=== PATIENT | female | born 1945 | race Caucasian/White ===

== ENCOUNTER → 2017-10-22 | Outpatient (CLI) | payer MEDICARE, OTHER ==
[~2017-10-22] MED LIST: AUGMENTIN 875875 M1 PO; LISINOPRIL20 MG
== END ==
LOC: M.RAD 12:58
DX: Z12.31 Encounter for screening mammogram for malignant neoplasm of breast (principal)

== ENCOUNTER → 2018-01-11 | Outpatient (CLI) | payer MEDICARE, OTHER | LOC: M.MRI 07:49 | DX: S89.92XA Unspecified injury of left lower leg, initial encounter (principal); M17.12 Unilateral primary osteoarthritis, left knee; M25.462 Effusion, left knee; X58.XXXA Exposure to other specified factors, initial encounter; Y93.89 Activity, other specified; Y92.89 Other specified places as the place of occurrence of the external cause; Y99.8 Other external cause status ==

== ENCOUNTER → 2018-04-18 | Outpatient (CLI) | payer MEDICARE, OTHER | LOC: M.RAD 16:00 | DX: Z00.01 Encounter for general adult medical examination with abnormal findings (principal); M85.80 Other specified disorders of bone density and structure, unspecified site; E28.39 Other primary ovarian failure; Z72.89 Other problems related to lifestyle; Z78.0 Asymptomatic menopausal state ==

== ENCOUNTER → 2018-11-18 | Outpatient (CLI) | payer MEDICARE, OTHER | LOC: M.RAD 14:00 | DX: Z12.31 Encounter for screening mammogram for malignant neoplasm of breast (principal) ==

== ENCOUNTER → 2019-07-31 | Day surgery (SDC) | payer MEDICARE, OTHER ==
[~2019-07-31] MED LIST changes: +B COMPLEX1 EACH PO; +CAL-MAG-ZINC T1 EACH PO; +FISH OIL 1,001000 M3 PO; +L-LYSINE500 M1 PO; -LISINOPRIL20 MG; +LISINOPRIL20 MG PO; +MILK THISTLE175 M3 PO; +OXYCODONE HCL 55 MG PO; +RED YEAST RICE600 MG PO; +VITAMIN C1000 MG PO; +VITAMIN D22000 UNIT PO
[2019-07-31 06:42] LABS: HEMATOCRIT 39.1 % (37.0-47.0); HEMOGLOBIN 13.2 gm/dL (12.0-15.0); MCH 30.5 pg (26.0-34.0); MCHC 33.8 g/dL (28.0-37.0); MCV 90.5 fL (80.0-100.0); MPV 6.7 fl. (7.2-11.1); RBC 4.32 mil/uL (4.20-5.00); RDW-CV 13.1 % (10.5-14.5); WBC 6.2 thou/uL (4.0-11.0)
[2019-07-31 06:49] LABS: CALCIUM 9.1 mg/dL (8.5-10.1); CREATININE 0.9 mg/dL (0.6-1.3); POTASSIUM 3.5 mmol/L (3.5-5.1)
--- NOTE | 2019-07-31 17:11 | EKG ---
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
--- NOTE | 2019-08-03 14:07 | PATH ---
[address] [address] PATHOLOGY RPT PROCEDURE Name: SUDHA NUÑEZ Room: [facility].#: [id number] Admission: 07/31/19 Date of : 47 Discharge: Report #: [id number] Path Case #: [id number] [facility] Accession Number: [id number] . 01 Material submitted: . hernia - LEFT INGUINAL HERNIA SAC. Modifiers: left . 01 Clinical history: . Right inguinal hernia Bilateral inguinal hernia repair and left femoral hernia repair . 02 Diagnosis: Left inguinal hernia sac: - Benign mesothelial-lined fibromembranous/fibrofatty tissue with mild chronic inflammation. (DANA:malvin; 08/02/2019) MBR 08/02/2019 1604 Local . 02 Electronically signed: . Rashaad Daley MD, Pathologist NPI- [id number] . 01 Gross description: . The specimen is received in formalin, labeled "Hiram Omer, Sudha, hernia sac left" and "inguinal" per requisition. Received is a segment of fibromembranous yellow to pink-trent tissue measuring 5.5 x 4.0 x 1.1 cm. Sectioning reveals no mass lesions and international sales representative tissue is submitted in A1. (SDY; 08/01/2019) SYU/SYU 08/01/2019 1034 Local . 02 Pathologist provided ICD-10: K40.90 . 02 CPT . 847773 Specimen Comment: A courtesy copy of this report has been sent to [phone], [phone]- Specimen Comment: [phone], Specimen Comment: Report sent to ,DR HARTMAN / DR CARDONA Performed at: [address], [place], [place] [id number] MD Matt Parks MD Phone: [phone] Performed at: [address] [facility] [address] [place], [place] [id number] MD Rashaad Daley MD Phone: [phone]
--- NOTE | 2019-08-28 11:03 | OP ---
[address] [address] OPERATIVE REPORT Name: VANNA NUÑEZ Room: [facility]#: [id number] Admission: 07/31/19 Attend Phys: Song Weiner DO Discharge: Date of : 47 Report #: [id number] THIS REPORT FOR: //name// CC: Song Hermosillo DICTATED BY: Contreras Kenney DO DATE OF SERVICE: 07/31/2019 PREOPERATIVE DIAGNOSIS: Right inguinal hernia. POSTOPERATIVE DIAGNOSES: Right indirect inguinal hernia, left indirect inguinal hernia, left femoral hernia. PRIMARY SURGEON: Song Weiner DO CONSTRUCTION ELECTRICIAN: Contreras Kenney DO, PGY3 OPERATION PERFORMED: Robotic-assisted laparoscopic bilateral inguinal and left femoral hernia repair with mesh. ANESTHESIA: Combined general and regional bilateral TAP blocks. ESTIMATED BLOOD LOSS: 20 mL. SPECIMEN REMOVED: Hernia sac and contents. COMPLICATIONS: None. INDICATIONS FOR PROCEDURE: The patient is a pleasant 73-year-old female who presented to the office for evaluation of a right inguinal hernia. She was seen at the [place] hernia screening event and was diagnosed with a right inguinal hernia at that time. She reports periodic burning pain as well as right groin pain for nearly 5 years. She reports a palpable and obvious bulge to the right groin that she is able to easily reduce. The hernia has never been stuck out, and denies any overlying skin changes. She also denied any fever, chills, nausea, vomiting, bloating, changes in bowel habits. I recommended a robotic-assisted laparoscopic right possible left inguinal hernia repair with mesh. Full discussion of procedure, alternatives, risks and possible complications discussed include but not limited to bleeding, infection, postoperative pain, scarring, conversion to open procedure, recurrence of hernia, urinary retention, injury to other underlying abdominal organs and anesthesia risks. The patient voiced understanding of these [place] [address] OPERATIVE REPORT Name: VANNA NUÑEZ Room: [facility]#: [id number] Admission: 07/31/19 Attend Phys: Song Weiner, DO Discharge: Date of : 47 Report #: [id number] proceed with surgery. DESCRIPTION OF PROCEDURE: The patient was again seen and examined in preoperative holding. Fully informed written consent was obtained. Preoperative antibiotics 1 g Ancef was given. The patient was subsequently transferred to the operating room suite, placed on the operating room table in a supine position. At this time, Anesthesia induced general anesthesia via endotracheal intubation. This was successful. Next Anesthesia then placed bilateral TAP blocks for regional anesthesia. SCDs were placed to bilateral lower extremity calves. Arms were padded with foam padding and tucked at the patient's side. Grounding pad was placed to the left lateral thigh. All extremities and joints were padded and protected. Lorri Hugger was placed across the patient's chest. A safety strap was placed across the patient's chest and lap. The patient was prepped and draped using standard sterile fashion. Time-out was performed prior to onset of procedure. We began by making a vertical incision superior to the umbilicus using open Powell technique. We dissected down to the level of the fascia. Fascia was scored with electrocautery, grasped with bilateral Kochers, elevated and transected. Next, a hemostat was used to aquino the peritoneum. Two interrupted [id number] 0 Vicryl sutures were placed at the fascial apices. An 8 mm robotic trocar was placed into the abdomen. Abdomen was insufflated first using low flow then high flow. A 30-degree robotic camera was placed in the abdomen, noting no injury to underlying abdominal structures upon entry into the abdomen. The patient was placed in Trendelenburg. The pelvis and groins were then evaluated. There was noted to be a right inguinal hernia and a left inguinal hernia. Both of these were indirect. There was also noted to be a left femoral hernia. We decided to proceed with bilateral hernia repair with mesh. Next, a 12 mm trocar was placed in the right mid abdomen and an additional 8 mm trocar was placed in the left mid abdomen. The patient's cart was brought to the patient's left side and docked appropriately. Monopolar scissors were placed in the right arm and a fenestrated bipolar was placed in the left. Dr. Weiner assumed position on the robotic console to begin the dissection. ASIS bilaterally were marked on the anterior abdominal wall using electrocautery. At this time, preperitoneal flaps were then made from the median umbilical ligament laterally to the ASIS and caudally to the superior pubic ramus. This was done exact same way on both sides. At this time, the right indirect inguinal hernia sac was dissected and reduced. Once this was completed, we then reduced the left-sided indirect inguinal hernia and hernia sac as well as the femoral hernia that was incarcerated containing fat. Once this was performed, pictures were taken and left and right large Bard 3DMax hernia meshes were brought onto the field rolled and placed into the preperitoneal flaps. These meshes were then sewn in using 2-0 Vicryl at Madhu's ligament as well as medial and lateral to the epigastric vessels. Once the meshes were sewn in, intraoperative pictures were obtained and the peritoneum was then closed using a running 2-0 V-Loc suture, 2-0 Vicryl interrupted sutures were then used to close 2 peritoneal defects, one on the left and one on the right. [place] [address] OPERATIVE REPORT Name: VANNA NUÑEZ [id number] Admission: 07/31/19 Attend Phys: Song Weiner DO Discharge: Date of : 47 Report #: [id number] Barton were then removed as was the femoral hernia sac and contents. Robotic instruments were then removed. Abdomen was desufflated under direct visualization. PMI closure device with a 0 Vicryl suture was used to close the fascia of the right 12 mm trocar. Once the abdomen was fully desufflated, the remaining trocars were removed and an additional 2 interrupted [id number] 0 Vicryl sutures were placed to close the fascia of the umbilical incision. Skin was then closed using interrupted subcuticular 4-0 Monocryl at all three incision sites. The patient tolerated the procedure well and was extubated in the OR. Abdomen was cleansed using wet and dry lap. Sterile dressing was applied, Mastisol, Steri-Strips, Tegaderms. The patient was transferred to the PACU in stable condition after brief recovery from anesthesia. PLAN: Discharged home. FOLLOWUP: Follow up in the office with Dr. Weiner in 1 week. <ELECTRONICALLY SIGNED> By: Sogn Weiner DO 08/28/19 1103 1103 [id number] Weiner DO /nt
== END | disposition home or self-care (01) ==
LOC: M.SUR 06:13
PROVIDERS: Surgery
DX: K40.20 Bilateral inguinal hernia, without obstruction or gangrene, not specified as recurrent (principal); K41.90 Unilateral femoral hernia, without obstruction or gangrene, not specified as recurrent; Z98.890 Other specified postprocedural states; Z79.899 Other long term (current) drug therapy

== ENCOUNTER → 2020-06-12 | Outpatient (CLI) | payer MEDICARE, OTHER | LOC: M.MRI 11:30 | PROVIDERS: ATTEND Family Medicine | DX: M48.07 Spinal stenosis, lumbosacral region (principal); M41.86 Other forms of scoliosis, lumbar region; M25.78 Osteophyte, vertebrae; M47.817 Spondylosis without myelopathy or radiculopathy, lumbosacral region; M51.27 Other intervertebral disc displacement, lumbosacral region; M54.31 Sciatica, right side; G89.29 Other chronic pain ==

== ENCOUNTER → 2020-06-18 | Outpatient (CLI) | payer MEDICARE, OTHER | LOC: M.RAD 13:13 | PROVIDERS: ATTEND Family Medicine | DX: Z12.31 Encounter for screening mammogram for malignant neoplasm of breast (principal) ==

== ENCOUNTER → 2020-09-30 | Outpatient (CLI) | payer MEDICARE, OTHER ==
[~2020-09-30] MED LIST changes: +ALEVE220 MG; +TIMOLOL MALEATE5 M2 PO; +ZANAFLEX4 M1 PO
== END ==
LOC: M.PC 09:02
PROVIDERS: ATTEND Physical Medicine & Rehabilitation
DX: M51.36 Other intervertebral disc degeneration, lumbar region (principal); M48.061 Spinal stenosis, lumbar region without neurogenic claudication; M47.816 Spondylosis without myelopathy or radiculopathy, lumbar region; M79.604 Pain in right leg

== ENCOUNTER → 2021-06-23 | Outpatient (CLI) | payer MEDICARE, OTHER | LOC: M.RAD 11:45 | PROVIDERS: ATTEND Family Medicine | DX: R05.9 Cough, unspecified (principal); M47.814 Spondylosis without myelopathy or radiculopathy, thoracic region ==